=== PATIENT | male | born 1980 | race American Indian/Alaskan Native ===

== ENCOUNTER 2020-08-14 02:06 | Emergency (ER) | payer MEDICAID ==
[2020-08-14] MEDS ORDERED: HALOPERIDOL LACTATE 5 MG/1 ML INJ IM PRN (02:41)
[2020-08-14] MEDS ORDERED: LORazepam 2 MG/ML VIAL IM PRN (02:41)
--- NOTE | 2020-08-14 02:41 | Emergency Department Report ---
ED General Adult HPI - General Chief complaint: Psych Stated complaint: MH PUI?: No Time Seen by Provider: 08/14/20 02:25 Source: patient, EMS ( EMS documentation not available at time of chart dictation ), RN notes reviewed Mode of arrival: Stretcher Limitations: Other (Patient somewhat disorganized) - History of Present Illness Initial comments: The patient was evaluated in the emergency department for symptoms described in the history of present illness. He/she was evaluated in the context of the global COVID-19 pandemic, which necessitated consideration that the patient might be at risk for infection with the virus that causes COVID-19. Institutional protocols and algorithms that pertain to the evaluation of mary ents at risk for COVID-19 are in a state of rapid change based on information released by regulatory bodies including the CDC and federal and state organizations. These policies and algorithms were followed during the patient's care in the emergency department. Please note that these policies, procedures and recommendations changed on a rapid basis. Patient is a 40-year-old gentleman who is not known to myself previously. Patient reportedly has a history of schizoaffective disorder. He was recently transitioned to a new prison. He was sent to this emergency room by his prison because he was reportedly aggressive. The patient stated that he did not like the food he was being fed. The patient denies physical pain. When I initially assessed the patient, his chief complaint was "I want to eat, do have any good food?." The patient denies physical pain. The patient is not homicidal or suicidal. The patient states he does not want to harm himself or harm other people. He denies all additional medical complaints. He denies urinary symptoms. He has endorsed to staff that he did not like the food at the aforementioned care facility. -: Sudden Consistency: now resolved Improves with: none Worsens with: none Associated Symptoms: denies other symptoms - Related Data Home Medications Medication Instructions Recorded Confirmed Last Taken ARIPiprazole [Abilify] 20 mg PO DAILY 08/14/20 08/14/20 Unknown [place] Carbonate ER [Lithobid ER] 300 mg PO BID 08/14/20 08/14/20 Unknown diphenhydrAMINE [Benadryl CAP] 50 mg PO QHS 08/14/20 08/14/20 Unknown haloperidoL [Haldol] 5 mg PO QHS 08/14/20 08/14/20 Unknown Allergies Allergy/AdvReac Type Severity Reaction Status Date / Time No Known Allergies Allergy Unverified 08/14/20 02:32 ED Review of Systems ROS: Stated complaint: MH Other details as noted in HPI Constitutional: see HPI Eyes: as per HPI ENT: as per HPI Respiratory: see HPI Cardiovascular: as per HPI Gastrointestinal: as per HPI Genitourinary: as per HPI Musculoskeletal: as per HPI Skin: as per HPI Neurological: as per HPI Psychiatric: as per HPI Hematological/Lymphatic: as per HPI ED Past Medical Hx - Past Medical History Previous Medical History?: Yes Hx Psychiatric Treatment: Yes (Schizoaffective disorder) - Surgical History Past Surgical History?: No - Social History Smoking Status: Current Every Day Smoker Substance Use Type: Cocaine - Medications Home Medications: Home Medications Medication Instructions Recorded Confirmed Last Taken Type ARIPiprazole [Abilify] 20 mg PO DAILY 08/14/20 08/14/20 Unknown History [place] Carbonate ER [Lithobid ER] 300 mg PO BID 08/14/20 08/14/20 Unknown History diphenhydrAMINE [Benadryl CAP] 50 mg PO QHS 08/14/20 08/14/20 Unknown History haloperidoL [Haldol] 5 mg PO QHS 08/14/20 08/14/20 Unknown History ED Physical Exam - General Limitations: Other (Patient somewhat disorganized and is a poor historian) General appearance: alert, in no apparent distress - Head Head exam: Present: atraumatic, normocephalic - Eye Eye exam: Present: normal appearance, EOMI. Absent: nystagmus - ENT ENT exam: Present: normal exam, normal orophraynx, mucous membranes moist, normal external ear exam - Neck Neck exam: Present: normal inspection, full ROM. Absent: tenderness, meningismus - Respiratory Respiratory exam: Present: normal lung sounds bilaterally. Absent: respiratory distress, wheezes, rales, rhonchi, stridor, decreased breath sounds - Cardiovascular Cardiovascular Exam: Present: regular rate, normal rhythm, normal heart sounds. Absent: bradycardia, tachycardia, irregular rhythm, systolic murmur, diastolic murmur, rubs, gallop - GI/Abdominal GI/Abdominal exam: Present: soft. Absent: distended, tenderness, guarding, rebound, rigid, pulsatile mass - Rectal Rectal exam: Present: deferred - Extremities Exam Extremities exam: Present: normal inspection, full ROM, other (2+ pulses noted in the bilateral upper and lower extremities. There is no palpable cord. negative Homans sign. Muscular compartments are soft. The pelvis is stable.). Absent: pedal edema, calf tenderness - Back Exam Back exam: Present: normal inspection, full ROM. Absent: tenderness, CVA tenderness (R), CVA tenderness (L), paraspinal tenderness, vertebral tenderness - Neurological Exam Neurological exam: Present: alert, other (No facial droop. Tongue midline. Extraocular movements intact bilaterally. Facial sensation intact to light touch in V1, V2, V3 distribution bilaterally. 5 and a 5 strength in 4 extremities. Sensation intact to light touch in 4 extremities.). Absent: motor sensory deficit - Psychiatric Psychiatric exam: Present: flat affect - Skin Skin exam: Present: warm, dry, intact, normal color. Absent: rash ED Course Vital Signs 08/14/20 02:32 Temperature 98.9 F Pulse Rate 85 Respiratory 18 Rate Blood Pressure 105/64 [Left] O2 Sat by Pulse 99 Oximetry ED Medical Decision Making - Lab Data Result diagrams: 08/14/20 02:44 08/14/20 02:44 Vital Signs 08/14/20 02:32 Temperature 98.9 F Pulse Rate 85 Respiratory 18 Rate Blood Pressure 105/64 [Left] O2 Sat by Pulse 99 Oximetry Lab Results 08/14/20 08/14/20 08/14/20 Range/Units 02:44 02:44 02:44 WBC (4.5-11.0) K/mm3 RBC (3.65-5.03) M/mm3 Hgb (11.8-15.2) gm/dl Hct (35.5-45.6) % MCV (84-94) fl MCH (28-32) pg MCHC (32-34) % RDW (13.2-15.2) % Plt Count (140-440) K/mm3 Sodium (137-145) mmol/L Potassium (3.6-5.0) mmol/L Chloride (98-107) mmol/L Carbon Dioxide (22-30) mmol/L Anion Gap mmol/L BUN (9-20) mg/dL Creatinine (0.8-1.3) mg/dL Estimated GFR ml/min BUN/Creatinine Ratio % Glucose (75-100) mg/dL Calcium (8.4-10.2) mg/dL Magnesium (1.7-2.3) mg/dL Total Creatine Kinase (55-170) units/L Urine Color Straw (Yellow) Urine Turbidity Clear (Clear) Urine pH 6.0 (5.0-7.0) Ur Specific [place] 1.001 L (1.003-1.030) Urine Protein <15 mg/dl (Negative) mg/dL Urine Glucose (UA) Negative (Negative) mg/dL Urine Ketones Negative (Negative) mg/dL Urine Nitrite Negative (Negative) Ur Reducing Substances Negative (Negative) Urine Bilirubin Negative (Negative) Urine Ictotest Negative (Negative) Urine Urobilinogen < 2.0 (<2.0) mg/dL Ur Leukocyte Esterase Negative (Negative) Urine WBC (Auto) 0.0 (0.0-6.0) /HPF Urine RBC (Auto) 0.0 (0.0-6.0) /HPF Salicylates < 0.3 L (2.8-20.0) mg/dL Urine Opiates Screen Urine Methadone Screen Acetaminophen 5.0 L (10.0-30.0) ug/mL Ur Barbiturates Screen Ur Phencyclidine Scrn Ur Amphetamines Screen U Benzodiazepines Scrn [place] 0.5 (0.0-1.2) mmol/L Urine Cocaine Screen U Marijuana (THC) Screen Drugs of Abuse Note Plasma/Serum Alcohol (0-0.07) % 08/14/20 08/14/20 08/14/20 Range/Units 02:44 02:44 02:44 WBC (4.5-11.0) K/mm3 RBC (3.65-5.03) M/mm3 Hgb (11.8-15.2) gm/dl Hct (35.5-45.6) % MCV (84-94) fl MCH (28-32) pg MCHC (32-34) % RDW (13.2-15.2) % Plt Count (140-440) K/mm3 Sodium 137 (137-145) mmol/L Potassium 4.0 (3.6-5.0) mmol/L Chloride 100.2 (98-107) mmol/L Carbon Dioxide 27 (22-30) mmol/L Anion Gap 14 mmol/L BUN 6 L (9-20) mg/dL Creatinine 0.8 (0.8-1.3) mg/dL Estimated GFR > 60 ml/min BUN/Creatinine Ratio 8 % Glucose 81 (75-100) mg/dL Calcium 9.4 (8.4-10.2) mg/dL Magnesium (1.7-2.3) mg/dL Total Creatine Kinase (55-170) units/L Urine Color (Yellow) Urine Turbidity (Clear) Urine pH (5.0-7.0) Ur Specific [place] (1.003-1.030) Urine Protein (Negative) mg/dL Urine Glucose (UA) (Negative) mg/dL Urine Ketones (Negative) mg/dL Urine Nitrite (Negative) Ur Reducing Substances (Negative) Urine Bilirubin (Negative) Urine Ictotest (Negative) Urine Urobilinogen (<2.0) mg/dL Ur Leukocyte Esterase (Negative) Urine WBC (Auto) (0.0-6.0) /HPF Urine RBC (Auto) (0.0-6.0) /HPF Salicylates (2.8-20.0) mg/dL Urine Opiates Screen Presumptive negative Urine Methadone Screen Presumptive negative Acetaminophen (10.0-30.0) ug/mL Ur Barbiturates Screen Presumptive negative Ur Phencyclidine Scrn Presumptive negative Ur Amphetamines Screen Presumptive negative U Benzodiazepines Scrn Presumptive negative [place] (0.0-1.2) mmol/L Urine Cocaine Screen Presumptive negative U Marijuana (THC) Screen Presumptive negative Drugs of Abuse Note Disclamer Plasma/Serum Alcohol < 0.01 (0-0.07) % 08/14/20 08/14/20 Range/Units 02:44 02:44 WBC 9.4 (4.5-11.0) K/mm3 RBC 4.88 (3.65-5.03) M/mm3 Hgb 13.9 (11.8-15.2) gm/dl Hct 41.2 (35.5-45.6) % MCV 84 (84-94) fl MCH 29 (28-32) pg MCHC 34 (32-34) % RDW 14.2 (13.2-15.2) % Plt Count 329 (140-440) K/mm3 Sodium (137-145) mmol/L Potassium (3.6-5.0) mmol/L Chloride (98-107) mmol/L Carbon Dioxide (22-30) mmol/L Anion Gap mmol/L BUN (9-20) mg/dL Creatinine (0.8-1.3) mg/dL Estimated GFR ml/min BUN/Creatinine Ratio % Glucose (75-100) mg/dL Calcium (8.4-10.2) mg/dL Magnesium 2.20 (1.7-2.3) mg/dL Total Creatine Kinase 312 H (55-170) units/L Urine Color (Yellow) Urine Turbidity (Clear) Urine pH (5.0-7.0) Ur Specific [place] (1.003-1.030) Urine Protein (Negative) mg/dL Urine Glucose (UA) (Negative) mg/dL Urine Ketones (Negative) mg/dL Urine Nitrite (Negative) Ur Reducing Substances (Negative) Urine Bilirubin (Negative) Urine Ictotest (Negative) Urine Urobilinogen (<2.0) mg/dL Ur Leukocyte Esterase (Negative) Urine WBC (Auto) (0.0-6.0) /HPF Urine RBC (Auto) (0.0-6.0) /HPF Salicylates (2.8-20.0) mg/dL Urine Opiates Screen Urine Methadone Screen Acetaminophen (10.0-30.0) ug/mL Ur Barbiturates Screen Ur Phencyclidine Scrn Ur Amphetamines Screen U Benzodiazepines Scrn [place] (0.0-1.2) mmol/L Urine Cocaine Screen U Marijuana (THC) Screen Drugs of Abuse Note Plasma/Serum Alcohol (0-0.07) % - Medical Decision Making Differential diagnosis, including but not limited to: General medical exam, medical clearance for psychiatric placement, behavioral concern in an adult Assessment and plan: 40-year-old gentleman who lives in a prison, with a history of schizoaffective disorder, who was sent here because of behavioral concerns, because the patient reportedly did not like the food he was being fed. In the emergency room, patient somewhat withdrawn, but cooperative, he is not homicidal or suicidal, he is not agitated, belligerent or combative, and he is quite cooperative. His physical examination is benign and unremarkable. Screening laboratory studies did not demonstrate any emergent toxicologic or metabolic insult. A psychiatric consultation and case management consultation have been requested. Patient at this point time does not appear to have an immediate medical contraindication to psychiatric admission, evaluation, consultation and placement, or discharge back to his personal alf, if, as I anticipate, the psychiatric team deems him suitable to return, as I do not feel the patient is in acute crisis, and I do not believe that at this point time he requires inpatient psychiatric stabilization or hospitalization Critical care attestation.: If time is entered above; I have spent that time in minutes in the direct care of this critically ill patient, excluding procedure time. ED Disposition Clinical Impression: General medical exam, Behavior concern in adult Is pt being admited?: No Does the pt Need Aspirin: No Condition: Good
[2020-08-14 03:12] LABS: Hematocrit 41.2 % (35.5-45.6); Hemoglobin 13.9 gm/dl (11.8-15.2); Mean Corpuscular HGB Conc 34 % (32-34); Mean Corpuscular Volume 84 fl (84-94); Platelet Count 329 K/mm3 (140-440); Red Blood Count 4.88 M/mm3 (3.65-5.03); Red Cell Distribution Width 14.2 % (13.2-15.2)
[2020-08-14 03:31] LABS: Color,Urine Straw (Yellow)
[2020-08-14 03:32] LABS: Bilirubin,Urine Negative (Negative); Protein,Urine <15 mg/dL mg/dL (Negative); Urobilinogen,Urine < 2.0 mg/dL (<2.0)
[2020-08-14 03:33] LABS: Ictotest,Urine Negative (Negative)
[2020-08-14 03:55] LABS: Amphetamine Screen,Urine PRESUMPTIVE NEGATIVE; Benzodiazepines Screen,Urine PRESUMPTIVE NEGATIVE; Cannabinoid Screen,Urine PRESUMPTIVE NEGATIVE; Cocaine Screen,Urine PRESUMPTIVE NEGATIVE; Methadone Screen,Urine PRESUMPTIVE NEGATIVE; Opiate Screen,Urine PRESUMPTIVE NEGATIVE
[2020-08-14 03:56] LABS: BUN/Creatinine Ratio 8; Blood Urea Nitrogen 6 mg/dL (9-20); Calcium 9.4 mg/dL (8.4-10.2); Hemolysis Index 49
[2020-08-14] MEDS: LITHIUM CARBONATE ER 300 MG TAB PO SCH ×2 (10:58→22:49)
[2020-08-14] MEDS: HALOPERIDOL 5 MG TAB PO SCH (22:51)
[2020-08-14] MEDS: diphenhydrAMINE 50 MG CAP PO SCH (22:52)
[2020-08-15] MEDS: LITHIUM CARBONATE ER 300 MG TAB PO SCH ×2 (11:00→23:53)
[2020-08-15] MEDS: HALOPERIDOL 5 MG TAB PO SCH (23:52)
[2020-08-15] MEDS: diphenhydrAMINE 50 MG CAP PO SCH (23:54)
[2020-08-16] MEDS ORDERED: ZIPRASIDONE MESYLATE 20 MG VIAL IM ONE ×2 (01:36→01:39)
[2020-08-16] MEDS: LITHIUM CARBONATE ER 300 MG TAB PO SCH ×2 (12:08→22:00)
[2020-08-16] MEDS: HALOPERIDOL 5 MG TAB PO SCH (22:00)
[2020-08-16] MEDS: diphenhydrAMINE 50 MG CAP PO SCH (22:00)
[2020-08-17] MEDS: LITHIUM CARBONATE ER 300 MG TAB PO SCH ×2 (10:49→22:10)
[2020-08-17] MEDS: HALOPERIDOL 5 MG TAB PO SCH (22:11)
[2020-08-17] MEDS: diphenhydrAMINE 50 MG CAP PO SCH (22:13)
[2020-08-18] MEDS: LITHIUM CARBONATE ER 300 MG TAB PO SCH ×2 (10:16→21:46)
--- NOTE | 2020-08-18 12:30 | XRay Report ---
CHEST 1 VIEW 08/18/2020 11:24 AM INDICATION / CLINICAL INFORMATION: Rule out TB for psych admission. COMPARISON: None available. FINDINGS: SUPPORT DEVICES: None. HEART / MEDIASTINUM: No significant abnormality. LUNGS / PLEURA: No significant pulmonary or pleural abnormality. No pneumothorax. ADDITIONAL FINDINGS: No significant additional findings. IMPRESSION: 1. No acute findings. Signer Name: Hubert Gonzales MD Signed: 08/18/2020 12:26 PM Workstation Name: [id number]
[2020-08-18] MEDS: diphenhydrAMINE 50 MG CAP PO SCH (21:42)
[2020-08-18] MEDS: HALOPERIDOL 5 MG TAB PO SCH (21:47)
[2020-08-19 08:49] VITALS: BP 117/65
[2020-08-19] MEDS: LITHIUM CARBONATE ER 300 MG TAB PO SCH (12:05)
== END 2020-08-19 18:07 | disposition home or self-care (01) ==
LOC: EEVIPCON 02:06 → ED 02:06
DX: F69 Unspecified disorder of adult personality and behavior (principal); Z00.00 Encounter for general adult medical examination without abnormal findings; F25.9 Schizoaffective disorder, unspecified; F17.200 Nicotine dependence, unspecified, uncomplicated; F12.10 Cannabis abuse, uncomplicated; Z79.899 Other long term (current) drug therapy
CPT/HCPCS: 36415; 80048; 80178; 80307; 81001; 82550; 82962; 83735; 85027; 96372; 99285; J1630; J2060; J3486; U0003; 71045; 80320; G0480